=== PATIENT | female | born 1975 | race Caucasian/White ===

== ENCOUNTER 2024-04-25 07:28 | Outpatient (OUT) | payer OTHER, SELFPAY ==
--- NOTE | 2024-04-25 07:50 | MM_ITS ---
Patient Name: REYNOLD TRUJILLO MR#: [id number] : 1975 Exam Date: 04/25/2024 Ordering Doctor: DR MALINI MIN . RADIOLOGY REPORT PROCEDURE: MM TOMOSYNTHESIS SCREENING BI COMPARISON: MG MAMM SCREEN 3D MIKAELA CAD, 01/04/2022. MG MAMM SCREEN 3D MIKAELA CAD, 03/29/2023. INDICATIONS: Screening Calculator Name NCI Breast Cancer Risk Assessment Tool 5 Year Breast Cancer Risk 1.50% Lifetime Breast Cancer Risk 10.70% Personal Breast Cancer No Personal Ovarian Cancer No Treatments None Family Cancers Father with lung cancer at age 60; Grandmother-maternal with esophageal cancer at age 50; Grandmother-paternal with breast cancer at age 34; Aunt-paternal with breast cancer at age ~40; Aunt-paternal with breast cancer at age ~45; Aunt-paternal with breast cancer at age ~43; Aunt-paternal with breast cancer at age ~45; Uncle-maternal with kidney cancer at age 60; Grandfather-paternal with prostate cancer at age 80. LOCATION: [facility] BREAST COMPOSITION: The breasts are heterogeneously dense,which may obscure small masses. FINDINGS: DIAGNOSTIC CATEGORY 1--NEGATIVE. NO CHANGE FROM COMPARISON ASSESSMENT. Scattered benign-appearing calcifications are present. Scattered benign-appearing lymph nodes are present. RIGHT BREAST: No significant suspicious finding. Linear scar marker anterior breast LEFT BREAST: No significant suspicious finding. RECOMMENDATIONS: ROUTINE MAMMOGRAM AND CLINICAL EVALUATION IN 12 MONTHS. PLEASE NOTE: A NORMAL MAMMOGRAM DOES NOT EXCLUDE THE POSSIBILITY OF BREAST CANCER. A CLINICALLY SUSPICIOUS PALPABLE LUMP SHOULD BE BIOPSIED. Dictated by: Sergo Soto MD on 04/25/2024 at 08:30 Approved by: Sergo Soto MD on 04/25/2024 at 08:32
== END 2024-04-25 07:29 | disposition home or self-care (01) ==
LOC: MAMMO 07:28
PROVIDERS: PCP Family Medicine; Visit Provider Family Medicine
DX: Z12.31 Encounter for screening mammogram for malignant neoplasm of breast (principal); Z80.3 Family history of malignant neoplasm of breast; Z80.1 Family history of malignant neoplasm of trachea, bronchus and lung; Z80.8 Family history of malignant neoplasm of other organs or systems; Z80.51 Family history of malignant neoplasm of kidney; Z80.42 Family history of malignant neoplasm of prostate
CPT/HCPCS: 77063; 77067